=== PATIENT | female | born 1960 | race Caucasian/White ===

== ENCOUNTER 2020-10-28 12:35 | Emergency (ER) | payer BC, SELFPAY ==
[2020-10-28 12:36] VITALS: BP 127/96; PULSE 97; RESP 16; TEMP 35.8; O2SAT 100; BMI 25.8
--- NOTE | 2020-10-28 13:30 | EKG12_ITS ---
Test Reason : DYSRHYTHMIA Blood Pressure : / mmHG Vent. Rate : 074 BPM Atrial Rate : 074 BPM P-R Int : 130 ms QRS Dur : 110 ms QT Int : 394 ms P-R-T Axes : 076 020 056 degrees QTc Int : 437 ms Sinus rhythm with sinus arrhythmia with occasional Premature ventricular complexes Otherwise normal ECG Confirmed by ELA GIORDANO, SIDNEY ([id number]), newspaper photo editor SHEFALI GIBSON ([id number]) on 11/03/2020 9:57:11 A M Referred By: FRANCIS Confirmed By:SUSAN MAHMOOD MD
--- NOTE | 2020-10-28 13:42 | ED.DCSUM_ITS ---
History of Present Illness Chief Complaint: Chest Other Informant: Patient Narrative: 60-year-old female who presents the emergency department with what she describes as a fluttering/air bubble/weird sensation in her mid chest. She states she has had it intermittently in the past. However since yesterday has been more frequent. She is an avid runner. She notes that she frequently gets postnasal drip and sometimes when she repeatedly swallows or tries to clear her throat and makes it come on. She thinks that is may be GERD but when she talked to her doctor's office today they recommended she come to emergency to make sure her heart is in rhythm. She denies any back pain. No shortness of breath. Patient denies any nausea or vomiting. Past Medical History - Allergies and Home Meds Allergies/Adverse Reactions: Allergies No Known Allergies Allergy (Verified 10/28/20 13:49) Primary Care Physician: Marcell Leo MD [Primary Care Provider] - Keep Misael appointment Past Medical History: None Surgical History: noncontributory Smoking Status: Never smoker Alcohol: None Drugs: None Review of Systems General: Denies: Chills, Fever, Sweats Eyes: Denies: Visual changes - bilaterally, Diplopia ENT: Denies: Rhinorrhea, Sore throat Cardiovascular: Reports: Palpitations. Denies: Chest pain Respiratory: Denies: Dyspnea, Cough, Dyspnea on exertion Gastrointestinal: Denies: Abdominal pain, Nausea, Vomiting, Diarrhea, Melena, Hematochezia Genitourinary: Denies: Dysuria, Hematuria, Frequency Musculoskeletal: Denies: Back pain, Extremity Pain Skin: Denies: Rash, Wounds Neurological: Denies: Headache, Weakness, Numbness Physical Exam Vital Signs/Narrative: Vital Signs Temp Pulse Resp BP Pulse Ox 10/28/20 12:36 96.4 F L 97 16 127/96 H 100 Inital Vital Signs reviewed: Yes General: Well nourished, Well developed, No Acute Distress Head: Normocephalic, Atraumatic Eyes: Perrl, EOMI ENT: Moist mucous membranes, No rhinorrhea Neck: Supple, Nontender Cardiovascular: Regular rate, Regular rhythm, No murmurs Respiratory: No distress, CTA bilaterally, Chest nontender Abdomen: Soft, Nontender, Nondistended, Normal bowel sounds Back: Nontender, Normal Inspection Extremities: Nontender, No edema Skin: Normal color, No rash Neurological: Alert, Oriented x3, Cranial nerves II-XII grossly intact, Normal Strength, Normal Sensation Psychological: Normal affect, Normal Mood Diagnostic/Tx/Re-eval Clinical Impression(s) from Imaging Studies Chest X-Ray 10/28/20 14:00 IMPRESSION: Hyperinflation. The lungs are clear. Electronically Signed: Vlad Horne, at 14:40 EST , Service support , Laboratory Last Values WBC 5.8 K/mm3 (4.4-11.0) 10/28/20 13:50 RBC 4.92 M/mm3 (4.2-5.4) 10/28/20 13:50 Hgb 14.9 g/dL (12.0-15.0) 10/28/20 13:50 Hct 45.6 % (37-47) 10/28/20 13:50 MCV 92.7 fL (81-99) 10/28/20 13:50 MCH 30.3 pg (27.0-32.0) 10/28/20 13:50 MCHC 32.7 g/dL (32-36) 10/28/20 13:50 RDW Std Deviation 42.1 fl (35.1-43.9) 10/28/20 13:50 RDW Coeff of Bill 12.3 % (11.6-14.6) 10/28/20 13:50 Plt Count 279 K/mm3 (150-450) 10/28/20 13:50 MPV 10.0 fl (6.2-12.0) 10/28/20 13:50 Immature Gran % (Auto) 0.200 % (0.0-0.9) 10/28/20 13:50 Neut % (Auto) 70.6 % (47-70) H 10/28/20 13:50 Lymph % (Auto) 20.9 % (19-41) 10/28/20 13:50 [place] % (Auto) 5.7 % (0-10) 10/28/20 13:50 Eos % (Auto) 1.7 % (0-5) 10/28/20 13:50 Baso % (Auto) 0.9 % (0-1) 10/28/20 13:50 Absolute Neuts (auto) 4.1 X10^3/uL (2.0-7.7) 10/28/20 13:50 Absolute Lymphs (auto) 1.21 X10^3/uL (0.83-4.51) 10/28/20 13:50 Nucleated RBC % 0 % (0-5) 10/28/20 13:50 Sodium 140 mmol/L (136-145) 10/28/20 13:50 Potassium 3.7 mmol/L (3.5-5.1) 10/28/20 13:50 Chloride 104 mmol/L (98-107) 10/28/20 13:50 Carbon Dioxide 31.0 mmol/L (21.0-32.0) 10/28/20 13:50 Anion Gap 5 (5-15) 10/28/20 13:50 BUN 16 mg/dL (7-18) 10/28/20 13:50 Creatinine 1.00 mg/dL (0.55-1.02) 10/28/20 13:50 Estim Creat Clear Calc 57.41 ml/min 10/28/20 13:50 Est GFR (MDRD) Af Amer 73 mL/min (>60) 10/28/20 13:50 Est GFR (MDRD) Non-Af 61 mL/min (>60) 10/28/20 13:50 BUN/Creatinine Ratio 16.0 RATIO (10-20) 10/28/20 13:50 Glucose 101 mg/dL (74-106) 10/28/20 13:50 Calcium 9.3 mg/dL (8.5-10.1) 10/28/20 13:50 Magnesium 2.3 mg/dL (1.6-2.6) 10/28/20 13:50 Troponin I < 0.015 ng/mL (<0.045) 10/28/20 13:50 - EKG Initial EKG Interpretation: Sinus Rhythm - EKG demonstrates a sinus rhythm with PVC. Heart rate is 74. - Medical Decision Making Cardiac work-up shows a normal sinus rhythm. Electrolytes are in check. Heart cardiac enzymes are normal. She is not anemic. Interpretation of the plain film of the portable single view chest x-ray shows a normal mediastinal silhouette. No acute cardiopulmonary process. Radiology concurs. I think there is a good chance this could be esophagitis. I will place her on Protonix for 2 weeks have her follow-up with primary care to see if it makes a difference. Return if worsening or concerns ED Disposition - Plan for ED Patient: Disposition: Home or Assisted Living Diagnosis: Palpitations, Chest discomfort Instructions: What Is GERD?, ED Palpitations Referrals: Marcell Leo MD [Primary Care Provider] - Keep Misael appointment
[2020-10-28] MEDS: Mag Hydrox/Al Hydrox/Simeth 30 ML UDC PO (13:51)
--- NOTE | 2020-10-28 14:00 | RAD_ITS ---
STUDY: X-RAY CHEST REASON FOR EXAM: Female, 60 years old. C/O OF FLUTTERING IN CHEST, NO PAIN OR DISCOMFORT TECHNIQUE: Single AP portable view of the chest. COMPARISON: None. FINDINGS: EKG electrodes are seen. Hyperinflation. Scattered calcified granulomas. There is no demonstrated pleural abnormality. Normal size heart. Normal mediastinum and erwin. Normal visualized pulmonary arteries. Normal visualized aortic arch and descending thoracic aorta. There are diffuse degenerative changes of the visualized thoracic spine. Normal visualized ribs, clavicles, and shoulders. There is no demonstrated abnormality of the visualized soft tissue structures of the upper abdomen. RAD/Chest 1 View (Portable) IMPRESSION: Hyperinflation. The lungs are clear. Electronically Signed: Vlad Horne, at 14:40 EST , Service support ,
[2020-10-28 14:06] LABS: Absolute Lymphocyte Count 1.21 X10^3/uL (0.83-4.51); Absolute Neutrophil Count 4.1 X10^3/uL (2.0-7.7); Basophil# 0.05 X10^3/uL; Basophil% 0.9 % (0-1); Eosinophils% 1.7 % (0-5); Hematocrit 45.6 % (37-47); Hemoglobin 14.9 g/dL (12.0-15.0); Lymphocyte # 1.21 X10^3/ul (4.0); Lymphocyte % 20.9 % (19-41); Mean Corp Hgb Conc 32.7 g/dL (32-36); Mean Corpuscular Hgb 30.3 pg (27.0-32.0); Mean Corpuscular Volume 92.7 fL (81-99); Monocyte# 0.33 X10^3/uL; Monocyte% 5.7 % (0-10); NRBC Flagged by Analyzer 0 % (0-5); Neutrophil # 4.09 X10^3/uL (2.7-7.7); Neutrophil % 70.6 % (47-70); Platelet Count 279 K/mm3 (150-450); RBC Distribution Width CV 12.3 % (11.6-14.6); RBC Distribution Width SD 42.1 fl (35.1-43.9); Red Blood Count 4.92 M/mm3 (4.2-5.4); White Blood Count 5.8 K/mm3 (4.4-11.0)
[2020-10-28 14:22] LABS: Anion Gap 5 (5-15); BUN 16 mg/dL (7-18); Calcium,Total 9.3 mg/dL (8.5-10.1); Chloride 104 mmol/L (98-107); EST Glomerular Filtration Rate 61 mL/min (>60); Est Glom Filt Rate - Afr Amer 73 mL/min (>60); Estimated Creatinine Clearance 57.41 ml/min; Glucose 101 mg/dL (74-106); Magnesium 2.3 mg/dL (1.6-2.6); Potassium 3.7 mmol/L (3.5-5.1); Sodium Level 140 mmol/L (136-145)
[2020-10-28 15:04] VITALS: PULSE 68; RESP 16; O2SAT 98
== END 2020-10-28 15:04 | disposition home or self-care (01) ==
PROVIDERS: Emergency Provider Emergency Medicine; PCP Family Medicine
DX: R00.2 Palpitations (principal); R07.89 Other chest pain; R09.82 Postnasal drip; Z79.899 Other long term (current) drug therapy
CPT/HCPCS: 71045; 80048; 83735; 84484; 85025; 93005; 99284; A4216